=== PATIENT | male | born 2000 | race Caucasian/White ===

== ENCOUNTER 2022-01-22 11:22 | Emergency (ER) | payer OTHER ==
[~2022-01-22] VITALS: Ht 182.9 cm; Wt 100.6 kg
[2022-01-22] MEDS ORDERED: NEOSPORIN OINT 0.9 GM PKT TOP ONE (14:20)
[2022-01-22] MEDS ORDERED: CEPH500T PO ×2 (14:45→14:46)
[2022-01-22 14:58] VITALS: BP 127/83
== END 2022-01-22 14:59 | disposition home or self-care (01) ==
LOC: M ED 11:22
DX: S61.312A Laceration without foreign body of right middle finger with damage to nail, initial encounter (principal); W23.0XXA Caught, crushed, jammed, or pinched between moving objects, initial encounter; Y92.89 Other specified places as the place of occurrence of the external cause; Y99.0 Civilian activity done for income or pay